=== PATIENT | male | born 1970 | race Caucasian/White ===

== ENCOUNTER 2020-11-29 06:59 | Inpatient (IN) ==
[2020-11-29] MEDS ORDERED: ACETAMINOPHEN 500 MG TABLET PO STA (07:29)
[2020-11-29] MEDS ORDERED: SODIUM CHLORIDE 0.9% 1,000 ML IV STA (07:29)
[2020-11-29 07:36] LABS: Basophils # 0.1 10*3/uL (0.0-0.2); Basophils % 0.4 % (0.0-0.8); Hematocrit 41.5 VOL% (42.0-52.0); Hemoglobin 14.2 GM/DL (14.0-18.0); Immature Granulocytes % 1.3 %; Immature Granulocytes Absolute 0.17 #; Lymphocytes % 15.7 % (21.2-54.2); Mean Corpuscular HGB Conc 34.2 GM/DL (32-36); Mean Platelet Volume 10.1 FL (9.6-12.0); Monocytes % 8.2 % (1.7-12.7); Neutrophils % 74.4 % (38.7-73.9); Platelet Count 439 T/CUMM (130-400); Red Blood Count 5.06 MC/CUMM (3.8-5.5); Red Cell Distribution Width 14.6 % (9.3-17.3); White Blood Count 12.6 T/CUMM (4-12)
[2020-11-29 07:46] LABS: INR 1.2; PT Patient Result 12.3 SECS (9.8-11.9)
[2020-11-29 07:55] LABS: Lymphocytes 15 % (20-55); Platelet Estimate Adequate; Segmented Neutrophils 82 % (50-85); Total Cells Counted 100
[2020-11-29] MEDS ORDERED: LEVOFLOXACIN INJ 500 MG in PREMIX 1 EACH IV STA (08:05)
[2020-11-29 08:07] LABS: Alanine Aminotransferase 74 U/L (16-61); Albumin 2.7 G/DL (3.4-5.0); Alkaline Phosphatase 66 U/L (45-117); Aspartate Amino Transferase 84 U/L (0-37); Blood Urea Nitrogen 29 MG/DL (7-18); Calcium 8.3 MG/DL (8.5-10.1); Estimated Glom Filtration Rate 65 ML/MIN; Ferritin 838.1 ng/ml (26-388); Glucose 98 MG/DL (74-106); Osmolality,Calculated 267.7 MOS/KG (273-304); Total Protein 7.3 G/DL (6.4-8.3)
[2020-11-29] MEDS ORDERED: DEXAMETHASONE 4 MG/1 ML VIAL IV STA (08:50)
[2020-11-29] MEDS ORDERED: MELATONIN 3 MG TABLET PO PRN (09:45)
[2020-11-29] MEDS ORDERED: ACETAMINOPHEN 325 MG TABLET PO PRN (09:48)
[2020-11-29] MEDS ORDERED: ALUMINUM/MAGNES/SIMETH MAX STR 30 ML UDCUP PO PRN (09:48)
[2020-11-29] MEDS ORDERED: ONDANSETRON 4 MG/2 ML VIAL IV PRN (09:48)
[2020-11-29] MEDS: ZINC GLUCONATE 50 MG TABLET PO SCH (10:13)
[2020-11-29] MEDS: CHOLECALCIFEROL 1,000 UNIT TABLET PO SCH (10:13)
[2020-11-29] MEDS: ASCORBIC ACID 500 MG TABLET PO SCH ×2 (10:13→22:29)
[2020-11-29] MEDS: ENOXAPARIN 40 MG/0.4 ML SYRINGE SUBCUT SCH (10:13)
[2020-11-29] MEDS: CETIRIZINE 10 MG TABLET PO SCH (10:13)
[2020-11-29] MEDS: FAMOTIDINE 20 MG TABLET PO SCH ×2 (10:13→22:29)
[2020-11-29] MEDS ORDERED: GLUCAGON 1 MG VIAL IM PRN (16:41)
[2020-11-29] MEDS ORDERED: DEXTROSE 50% 25 GM/50 ML VIAL IV PRN (16:41)
[2020-11-29] MEDS: INSULIN LISPRO 100 UNIT/ML SUBCUT SCH (22:30)
[2020-11-30 05:02] LABS: Basophils # 0.1 10*3/uL (0.0-0.2); Basophils % 0.8 % (0.0-0.8); Eosinophils % 0.1 % (0.00-10.9); Hematocrit 47.1 VOL% (42.0-52.0); Hemoglobin 15.6 GM/DL (14.0-18.0); Immature Granulocytes % 3.7 %; Immature Granulocytes Absolute 0.33 #; Lymphocytes # 2.1 10*3/uL (1.4-4.0); Lymphocytes % 23.3 % (21.2-54.2); Mean Corpuscular HGB Conc 33.1 GM/DL (32-36); Mean Corpuscular Volume 83.8 FL (87-102); Mean Platelet Volume 10.4 FL (9.6-12.0); Monocytes % 9.9 % (1.7-12.7); Neutrophils % 62.2 % (38.7-73.9); Platelet Count 469 T/CUMM (130-400); Red Blood Count 5.62 MC/CUMM (3.8-5.5); Red Cell Distribution Width 14.3 % (9.3-17.3); White Blood Count 8.8 T/CUMM (4-12)
[2020-11-30 05:45] LABS: Albumin 2.6 G/DL (3.4-5.0); Bilirubin,Total 0.6 MG/DL (0.2-1.0); Ferritin 934.1 ng/ml (26-388); Total Protein 8.2 G/DL (6.4-8.3)
[2020-11-30 07:03] LABS: Sedimentation Rate-Westergren 23 MM/HR (0-15)
[2020-11-30] MEDS: INSULIN LISPRO 100 UNIT/ML SUBCUT SCH ×4 (08:09→22:39)
[2020-11-30] MEDS: ASCORBIC ACID 500 MG TABLET PO SCH ×2 (09:14→22:40)
[2020-11-30] MEDS: ZINC GLUCONATE 50 MG TABLET PO SCH (09:15)
[2020-11-30] MEDS: CETIRIZINE 10 MG TABLET PO SCH (09:15)
[2020-11-30] MEDS: CHOLECALCIFEROL 1,000 UNIT TABLET PO SCH (09:15)
[2020-11-30] MEDS: FAMOTIDINE 20 MG TABLET PO SCH ×2 (09:15→22:40)
[2020-11-30] MEDS: AZITHROMYCIN 250 MG TABLET PO SCH (09:15)
[2020-11-30] MEDS: DEXAMETHASONE 4 MG/1 ML VIAL IV SCH (09:15)
[2020-11-30] MEDS: ENOXAPARIN 40 MG/0.4 ML SYRINGE SUBCUT SCH (09:17)
[2020-11-30] MEDS: ALBUTEROL INHALER 18 GM INH SCH (18:21)
[2020-12-01] MEDS: ALBUTEROL INHALER 18 GM INH SCH ×3 (02:07→13:22)
[2020-12-01] MEDS: CHOLECALCIFEROL 1,000 UNIT TABLET PO SCH (09:15)
[2020-12-01] MEDS: DEXAMETHASONE 4 MG/1 ML VIAL IV SCH (09:15)
[2020-12-01] MEDS: INSULIN LISPRO 100 UNIT/ML SUBCUT SCH ×2 (09:15→11:10)
[2020-12-01] MEDS: AZITHROMYCIN 250 MG TABLET PO SCH (09:15)
[2020-12-01] MEDS: ASCORBIC ACID 500 MG TABLET PO SCH (09:15)
[2020-12-01] MEDS: CETIRIZINE 10 MG TABLET PO SCH (09:15)
[2020-12-01] MEDS: ZINC GLUCONATE 50 MG TABLET PO SCH (09:15)
[2020-12-01] MEDS: FAMOTIDINE 20 MG TABLET PO SCH (09:15)
[2020-12-01] MEDS: ENOXAPARIN 40 MG/0.4 ML SYRINGE SUBCUT SCH (09:15)
[2020-12-01 13:26] VITALS: BP 111/81
== END 2020-12-01 15:00 | disposition home or self-care (01) | DRG 177 ==
LOC: N.ED 06:59 → SUATTDRO 09:48 → N.EDINP 09:48 → N.2E 11:40
PROVIDERS: ADMIT Internal Medicine; ATTEND Internal Medicine